=== PATIENT | female | born 1970 | race American Indian/Alaskan Native ===

== ENCOUNTER 2020-11-18 14:40 | Emergency (ER) | payer OTHER ==
[2020-11-18 15:36] VITALS: BP 108/79
--- NOTE | 2020-11-18 17:14 | Event Note ---
ED Screening Note ED Screening Note: right lower abd pain that began this morning N/V reports she had 4 episodes of vomiting no diarrhea no fever no urinary symptoms pmhx factor v leiden, seizure, anxiety, depression, hypothyroidism pshx hiatal hernia surgery and esophageal stretching, cholecystectomy, partial hysterecomty This initial assessment/diagnostic orders/clinical plan/treatment(s) is/are subject to change based on patients health status, clinical progression and re- assessment by fellow clinical providers in the ED. Further treatment and workup at subsequent clinical providers discretion. Patient/guardian urged not to elope from the ED as their condition may be serious if not clinically assessed and managed. Initial orders include: labs, ua
[2020-11-18 18:40] LABS: Bacteria,Urine 1+ /HPF (Negative); Bilirubin,Urine NEG (Negative); Blood,Urine SM (Negative); Color,Urine Yellow (Yellow); Protein,Urine <15 mg/dL mg/dL (Negative); Urobilinogen,Urine < 2.0 mg/dL (<2.0)
[2020-11-18 19:33] LABS: Basophils # (Auto) 0.1 K/mm3 (0.0-0.1); Basophils % (Auto) 1.8 % (0.0-1.8); Eosinophils # (Auto) 0.1 K/mm3 (0.0-0.4); Eosinophils % (Auto) 2.6 % (0.0-4.3); Hematocrit 45.5 % (30.3-42.9); Hemoglobin 15.2 gm/dl (10.1-14.3); Lymphocytes # (Auto) 1.8 K/mm3 (1.2-5.4); Lymphocytes % (Auto) 40.4 % (13.4-35.0); Mean Corpuscular HGB Conc 33 % (30-34); Mean Corpuscular Volume 102 fl (79-97); Monocytes # (Auto) 0.3 K/mm3 (0.0-0.8); Monocytes % (Auto) 6.8 % (0.0-7.3); Platelet Count 229 K/mm3 (140-440); Red Blood Count 4.45 M/mm3 (3.65-5.03); Red Cell Distribution Width 13.8 % (13.2-15.2)
[2020-11-18 19:52] LABS: Albumin 4.8 g/dL (3.9-5); Calcium 9.9 mg/dL (8.4-10.2)
[2020-11-18] MEDS ORDERED: HYDROcodone/ACETAMINOPHEN 5-325 MG TAB PO STA (20:16)
--- NOTE | 2020-11-18 20:26 | Emergency Department Report ---
ED General Adult HPI - General Chief complaint: Abdominal Pain Stated complaint: FELL HIT HEAD Time Seen by Provider: 11/18/20 17:12 Source: patient Mode of arrival: Ambulatory Limitations: No Limitations - History of Present Illness Initial comments: 50-year-old -[place] female with past medical history of factor V Leiden deficiency requiring Eliquis as well as thyroid disorder presents emergency department complaining of accidental slip and fall in the shower and striking the back of her head causing a dull throbbing headache type pain with no palliative factors it is worse with palpation and range of motion. She also wants to have her abdomen evaluated states that her stomach started to develop a vague stomach ache to the right abdomen earlier this morning around 6 AM has a history of cholecystectomy, hiatal hernia repair and a hysterectomy I will reports no no diarrhea no no constipation had 1 episode of vomiting. No fever, T chills, sweats no hemoptysis no hematemesis no metaplasia,. She reports no foreign travel no known contact with the coronavirus. And did not suspect any food poisoning Quality: aching, dull Consistency: constant Treatments Prior to Arrival: none - Related Data Previous Rx's Medication Instructions Recorded Last Taken Type Hyoscyamine Subl [Levsin Sl 0.125 0.125 mg SL Q6HR PRN #30 tab 11/18/20 Unknown Rx TAB] Allergies Allergy/AdvReac Type Severity Reaction Status Date / Time ketorolac [From Toradol] Allergy Hives Verified 11/18/20 15:31 ondansetron [From Zofran] Allergy Hives Verified 11/18/20 15:31 Penicillins Allergy Hives Verified 11/18/20 15:31 tramadol Allergy Hives Verified 11/18/20 15:31 morphine AdvReac Unknown Verified 11/18/20 15:31 ED Review of Systems ROS: Stated complaint: FELL HIT HEAD Other details as noted in HPI Comment: All other systems reviewed and negative ED Past Medical Hx - Past Medical History Hx of Cancer: Yes (THYROID) Hx Seizures: Yes Hx Psychiatric Treatment: Yes (ANXIETY/ DEPRESSION) Additional medical history: BLOOD CLOT DISORDER/ ESPOHAGUS STRETCHING X 2 - Surgical History Hx Cholecystectomy: Yes Additional Surgical History: THYROID/ HERNIA X2 /PARTIAL HYSTO - Medications Home Medications: Home Medications Medication Instructions Recorded Confirmed Last Taken Type Hyoscyamine Subl [Levsin Sl 0.125 0.125 mg SL Q6HR PRN #30 tab 11/18/20 Unknown Rx TAB] ED Physical Exam - General Limitations: No Limitations General appearance: alert, in no apparent distress - Head Head exam: Present: atraumatic, normocephalic, other (No hematoma was visualized. No laceration.) - Eye Eye exam: Present: normal appearance, PERRL, EOMI. Absent: conjunctival injection, nystagmus - ENT ENT exam: Present: normal exam, mucous membranes moist, TM's normal bilaterally - Neck Neck exam: Present: normal inspection, full ROM - Respiratory Respiratory exam: Present: normal lung sounds bilaterally. Absent: respiratory distress, wheezes, rales, rhonchi, chest wall tenderness, accessory muscle use - Cardiovascular Cardiovascular Exam: Present: regular rate, normal rhythm. Absent: systolic murmur, diastolic murmur, rubs, gallop - GI/Abdominal GI/Abdominal exam: Present: soft, tenderness (To the right hypochondriac region bowel sounds are positive. No Rovsing no Gilliland Lindo no rebound. Negative [place] jaw.), normal bowel sounds. Absent: rebound, hyperactive bowel sounds, organomegaly, mass - Extremities Exam Extremities exam: Present: normal inspection - Back Exam Back exam: Present: normal inspection. Absent: CVA tenderness (R), CVA tenderness (L) - Neurological Exam Neurological exam: Present: alert, oriented X3, CN II-XII intact, normal gait - Psychiatric Psychiatric exam: Present: normal affect, normal mood - Skin Skin exam: Present: warm, dry, intact, normal color. Absent: rash ED Course Vital Signs 11/18/20 15:30 Temperature 97.6 F Pulse Rate 91 H Respiratory 20 Rate Blood Pressure 108/79 O2 Sat by Pulse 100 Oximetry ED Medical Decision Making - Lab Data Result diagrams: 11/18/20 18:55 11/18/20 18:55 - Radiology Data CT scan OF the reasons unknown by the patient or radiology department - Medical Decision Making The patient is oriented to person, place, and time, has the capacity to make decisions regarding the medical care offered. The patient speaks coherently and exhibits no evidence of having an altered level of consciousness or alcohol or drug intoxication to a point that would impair judgment. They respond knowingly to questions about recommended treatment and alternate treatments including no further testing or treatment; participate in diagnostic and treatment decisions by means of rational thought processes; and understand the items of minimum basic medical treatment information with respect to that treatment (the nature and seriousness of the illness, the nature of the treatment, the probable degree and duration of any benefits and risks of any medical intervention that is being recommended, and the consequences of lack of treatment, and the nature, risks, and benefits of any reasonable alternatives). I have reviewed the relevant issues with the patient. They are aware of the suspected diagnosis suggested by screening exam, CT scan of the head, based upon the initiated medical screening exam. The patient acknowledges understanding of the reasons for recommendations regarding medical treatment, medical testing, and further monitoring and observation. The recommended medical care being refused has been discussed with the patient and is [_]. The risks of refusing recommended care that were disclosed and acknowledged by the patient are loss of current lifestyle, permanent mental impairment, and . The patient understands the relevant information of the nature of their medical condition, as well as the risks, benefits, and treatment alternatives (including non-treatment), consequences of refusing care, and can competently communicate a rational explanation about their choice of care options. [Discharge instructions were provided to the patient.] The patient understands they are welcome to return to the hospital at any time to receive the recommended care or any other care at any time, regardless of their ability to pay for such care. Critical care attestation.: If time is entered above; I have spent that time in minutes in the direct care of this critically ill patient, excluding procedure time. ED Disposition Clinical Impression: Abdominal pain, Head injury due to trauma Disposition: 07 LEFT AGAINST MEDICAL ADVICE Is pt being admited?: No Does the pt Need Aspirin: No Condition: Stable Instructions: Abdominal Pain (ED) Prescriptions: Hyoscyamine Subl [Levsin Sl 0.125 TAB] 0.125 mg SL Q6HR PRN #30 tab PRN Reason: abdominal pain
== END 2020-11-18 20:20 | disposition left against medical advice (07) ==
LOC: EDBD → ED 14:40
DX: S09.90XA Unspecified injury of head, initial encounter (principal); F41.9 Anxiety disorder, unspecified; F32.9 Major depressive disorder, single episode, unspecified; Z90.49 Acquired absence of other specified parts of digestive tract; Z86.69 Personal history of other diseases of the nervous system and sense organs; Z88.0 Allergy status to penicillin; Z88.6 Allergy status to analgesic agent; Z88.5 Allergy status to narcotic agent; Z88.8 Allergy status to other drugs, medicaments and biological substances; Z79.899 Other long term (current) drug therapy; W18.39XA Other fall on same level, initial encounter; Y93.89 Activity, other specified; Y92.89 Other specified places as the place of occurrence of the external cause; Y99.8 Other external cause status
CPT/HCPCS: 36415; 80053; 81001; 83690; 85025; 99283